=== PATIENT | female | born 1960 | race Caucasian/White ===

== ENCOUNTER → 2018-10-17 09:55 | Outpatient (CLI) | payer BC, OTHER, SELFPAY ==
--- NOTE | 2018-10-17 | DI.CT.S_ITS ---
PROCEDURE: CT CHEST WO CON INDICATIONS: Other nonspecific abnormal finding of lung field TECHNIQUE: Noncontrast 2.0-2.5 mm thick sections acquired from the pulmonary apices to the posterior costophrenic angles. 7 mm thick coronal and sagittal MIP reformats were then acquired. A low radiation dose technique was utilized. COMPARISON: Outside Facility, RG, CT THORAX W/O CONTRAST, 11/27/2015, 13:38. FINDINGS: Image quality: Diagnostic, given the low radiation dose technique. Lungs and pleura: Multiple sub-5 mm bilateral pulmonary nodules are grossly stable since 11/27/15. The previously described 7 mm solid nodule involving the superior segment of the left lower lobe is also stable since the only comparison examination dated 11/27/15. This is seen on image 110 series 3 Mediastinum: Heart size is normal. Coronary artery calcifications are present. No pericardial effusion. No mediastinal adenopathy by size criteria. Thoracic aorta and central pulmonary arteries are normal in size. Esophagus is normal in caliber. No hiatal hernia. Bones and chest wall: No suspicious bony lesions. No vertebral body compression fractures. No axillary or supraclavicular adenopathy by size criteria. Thyroid gland unremarkable. Abdomen: Visualized upper abdomen solid organs and bowel loops appear normal in the absence of contrast. IMPRESSION: Overall, no interval change in subcentimeter pulmonary nodules. A final definitive followup noncontrast chest CT could be performed in 2 years to provide 5 year surveillance of the sub-solid left lower lobe superior segment pulmonary nodule. Fleischner Society criteria for SOLID lung nodule followup. Nodule size (mm)Low-risk patientHigh-risk patient<6 (single or multiple)No routine followup.Optional CT at 12 months. 6-8 (single or multiple)CT at 6-12 months, then optional CT at 18-24 mo.CT at 6-12 months, then CT at 18-24 months. >8 (single)CT at 3 months, PET-CT, or biopsy. Same as for low-risk pts. >8 (multiple)CT at 3-6 months, then optional CT at 18-24 mo.CT at 3-6 months, then CT at 18-24 months. Fleischner Society criteria for SUB-SOLID lung nodule followup. Solitary pure ground-glass nodules<6 mm (ground glass or part solid)No followup needed. 6 mm or larger (ground glass)CT at 6-12 months to confirm persistence, then CT every 2 years until 5 years.6 mm or larger (part solid)CT at 3-6 months to confirm persistence, then annual CT until 5 years if unchanged and solid component remains <6 mm. Multiple sub-solid nodules<6 mmCT at 3-6 months, then CT consider at 2 & 4 years for high risk patients. [address] at 3-6 months. Subsequent management based on most suspicious lesions. Recommendations do not apply to lung cancer screening, patients with immunosuppression, or patients with known primary cancer. Dictated by: Jaquan Larkin M.D. on 10/22/2018 at 16:19 Approved by: Jaquan Larkin M.D. on 10/22/2018 at 16:25
== END ==
PROVIDERS: Visit Provider Internal Medicine
DX: R91.8 Other nonspecific abnormal finding of lung field (principal)
CPT/HCPCS: 71250

== ENCOUNTER 2020-06-12 10:48 | Emergency (ER) | payer BC, OTHER, SELFPAY ==
[2020-06-12 11:05] VITALS: BP 202/91; PULSE 71; RESP 14; TEMP 36.9; O2SAT 100; BMI 22.1
[2020-06-12 11:17] VITALS: PULSE 76; O2SAT 100
[2020-06-12 11:30] VITALS: PULSE 61; O2SAT 98
[2020-06-12 11:31] VITALS: BP 136/75; PULSE 66; O2SAT 98
--- NOTE | 2020-06-12 11:32 | ED.SKABFB ---
HPI - Skin/Abscess/Foreign Bdy <PANFILO Green - Last Filed: 06/12/20 15:43> General Chief complaint: Skin/Abscess/Foreign Body Stated complaint: trouble swallowing food Time Seen by Provider: 06/12/20 11:14 Source: patient Mode of arrival: Ambulatory Limitations: no limitations History of Present Illness HPI narrative: 59yo female wtih HTN, presents to the ED for difficulty swallowing for the past week. Patient states approximately week ago she choked on an almond butter sandwich and but the left side of her tongue. She noticed after that it was difficult to swallow food. She states it is getting progressively worse, she states it is difficult to swallow food when she is eating. She does not vomit or spit it out. Patient states she ate breakfast yesterday, did not eat anything today because she was scared it would get stuck. Patient states she has able to drink liquids. She was able to eat a smoothie and take a vitamin today. She called to make an appointment at her doctor's office, was told to come to the emergency department for imaging, patient requesting CT. ?. She denies any history of acid reflux, states she took an acid yesterday unsure of this helped. She denies any numbness, tingling, slurred speech, facial droop, headaches, vision changes, nausea, vomiting, diarrhea, chest pain, shortness of breath, or any other concerns. Related Data Previous Rx's Medication Instructions Recorded lisinopril 10 mg tablet 10 mg PO DAILY #90 tab 01/14/20 lisinopril 5 mg tablet 5 mg PO DAILY #90 tab 01/14/20 omeprazole 20 mg PO DAILY 14 Days #14 cap 06/12/20 Allergies Allergy/AdvReac Type Severity Reaction Status Date / Time sulfamethoxazole Allergy Severe hives from Verified 06/12/20 11:10 [From ] being in the sun trimethoprim [From ] Allergy Severe hives from Verified 06/12/20 11:10 being in the sun bacitracin Allergy Intermediate itchy skin Verified 06/12/20 11:10 Review of Systems <PANFILO Green - Last Filed: 06/12/20 15:43> Review of Systems Narrative: REVIEW OF SYSTEMS: GENERAL: Denies fever. HENT: No head trauma. Reports difficulty swelling, see HPI. CARDIOVASCULAR: No chest pain. RESPIRATORY: No shortness of breath or cough. GASTROINTESTINAL: No nausea or vomiting. GENITOURINARY: No flank pain. MUSCULOSKELETAL: No pain. INTEGUMENTARY: No rash. NEURO: No numbness or tingling. Patient History <PANFILO Green - Last Filed: 06/12/20 15:43> Medical History Abnormal Pap smear of cervix (~2018) Acne (~1974) Allergies (~1984) Chicken pox Colon polyps (~2015) Dyslipidemia Fibroids (~2014) Frequent UTI (~1982) Hemoglobin A1c above reference range Hypertension (~2012) Kidney stones (~2011) Ovarian cyst Ruptured tympanic membrane (~1993) Surgical History Anesthesia History of oophorectomy (~2014) History of oral surgery (~1983) Family History Father Cancer Hypertension Mother Hypertension Grandmother Melanoma Social History Smoking Status: Never smoker Smoking Status: Never smoker alcohol intake frequency: holidays/special occasions only Substance Use Type: does not use Exam <PANFILO Green - Last Filed: 06/12/20 15:43> Initial Vital Signs Initial Vital Signs: Vital Signs Temperature 98.4 F 06/12/20 11:05 Pulse Rate 71 06/12/20 11:05 Respiratory Rate 14 06/12/20 11:05 Blood Pressure 202/91 H 06/12/20 11:05 Pulse Oximetry 100 06/12/20 11:05 PHYSICAL EXAMINATION: GENERAL: Awake and alert HENT: Normocephalic, atraumatic. Oropharynx without erythema. EYES: PERRLA, EOMIs, conjunctiva pink, sclera white, no periorbital swelling. CHEST: Normal to inspection and without deformities. CARDIOVASCULAR: S1 and S2 sounds normal. Regular rate and rhythm, no murmurs, clicks, or bruits. No pedal edema. RESPIRATORY: Normal respiratory rate, trachea midline, airway patent. No stridor, nasal flaring or accessory muscle use. Lungs are clear in all clement without wheeze, rhonchi, or crackles. GASTROINTESTINAL: Bowel sounds normoactive. Abdomen is soft and non-tender. No organomegaly. MUSCULOSKELETAL: Normal gait and coordination. Equal tone and mass bilaterally. EXTREMITIES: CMS intact. Moves all extremities. SKIN: Warm, dry, soft, appropriate color for ethnicity. No lesions, rashes, or wounds. NEURO: Alert and Oriented X 3. Good coordination. No ataxia, or sensory deficits, or cognitive issues. PHYSICAL EXAMINATION: GENERAL: Well groomed, alert, and cooperative. Answers questions promptly and appropriately. Vital signs noted. HENT: Normocephalic. Ear canals patent. Oral mucosa is pink and moist. EYES: PERRLA, EOMIs, conjunctiva pink, sclera white, no periorbital swelling. NECK: Full ROM, no midline or spinal tenderness. CARDIOVASCULAR: S1 and S2 sounds normal. Regular rate and rhythm, no murmurs, clicks, or bruits. RESPIRATORY: Normal respiratory rate, trachea midline, airway patent. No stridor, nasal flaring or accessory muscle use. Lungs are clear in all clement without wheeze, rhonchi, or crackles. MUSCULOSKELETAL: Normal gait and coordination. Equal tone and mass bilaterally. Equal strength bilaterally to upper and lower extremities. No spinal tenderness. EXTREMITIES: CMS intact. Moves all extremities. SKIN: Warm, dry, soft, appropriate color for ethnicity. No lesions, rashes, or wounds to visualized areas. NEURO: Alert and Oriented X 3. GCS: 15. Good coordination. No ataxia, or sensory deficits, or cognitive issues. Cranial Nerves: II: Visual clement grossly intact. III & IV & : EOMIs V: Able to open and close jaw. VII: Facial movements symetrical. Able to close eyelids tightly. VIII: Hearing grossly intact, adequate balance. X: Uvula pronation intact. XI: Patient is able to shrug shoulders. XII: Patient is able to stick out tongue and move it side to side. PSYCH: Appropriate affect and mood. PSYCH: Appropriate affect and mood. <Tiana Blackburn, - Last Filed: 06/13/20 08:11> Initial Vital Signs Initial Vital Signs: Vital Signs Temperature 98.4 F 06/12/20 11:05 Pulse Rate 71 06/12/20 11:05 Respiratory Rate 14 06/12/20 11:05 Blood Pressure 202/91 H 06/12/20 11:05 Pulse Oximetry 100 06/12/20 11:05 Course <PANFILO Green - Last Filed: 06/12/20 15:43> Course Course Narrative: 1310: I spoke with Dr. Brown, discussed patient's symptoms, test, test results, plan of care. She agreed outpatient follow-up is appropriate. 1330: Patient updated on plan of care, encouraged to contact outpatient surgeon as soon as possible. All questions answered. Patient reports feeling better after GI cocktail. Orders Ordered: Discontinued Medications Al Hydrox/Mg Hydrox/Simethicone 20 ml/ Lidocaine HCl 15 ml 0 ml PO NOW ONE Stop: 06/12/20 11:31 Last Admin: 06/12/20 11:38 Dose: 35 ml Documented by: SCHUYLER Consultations Consultation #1: Patient staffed with Dr. Blackburn discussed test, test results, plan of care. Vital Signs Vital signs: Vital Signs - 8 hr 06/12/20 11:05 06/12/20 11:17 06/12/20 11:30 Temperature 98.4 F Pulse Rate 71 76 61 Respiratory Rate 14 Blood Pressure 202/91 H Pulse Oximetry 100 100 98 06/12/20 11:31 06/12/20 12:44 06/12/20 13:35 Temperature Pulse Rate 66 70 68 Respiratory Rate 14 14 Blood Pressure 136/75 136/75 136/75 Pulse Oximetry 98 100 100 <Tiana Blackburn DO - Last Filed: 06/13/20 08:11> Orders Ordered: Discontinued Medications Al Hydrox/Mg Hydrox/Simethicone 20 ml/ Lidocaine HCl 15 ml 0 ml PO NOW ONE Stop: 06/12/20 11:31 Last Admin: 06/12/20 11:38 Dose: 35 ml Documented by: SCHUYLER Vital Signs Vital signs: Vital Signs - 8 hr 06/12/20 11:05 06/12/20 11:17 06/12/20 11:30 Temperature 98.4 F Pulse Rate 71 76 61 Respiratory Rate 14 Blood Pressure 202/91 H Pulse Oximetry 100 100 98 06/12/20 11:31 06/12/20 12:44 06/12/20 13:35 Temperature Pulse Rate 66 70 68 Respiratory Rate 14 14 Blood Pressure 136/75 136/75 136/75 Pulse Oximetry 98 100 100 MDM - Skin/Abscess/Foreign Bdy <Cristina Ross CUSTOMER CARE COORDINATOR - Last Filed: 06/12/20 15:43> Medical Records Attestation: I reviewed the patient's medical records. Lab Data Attestation: I reviewed the patient's lab results. Result diagrams: 06/12/20 11:49 06/12/20 11:49 Labs: Lab Results 06/12/20 06/12/20 Range/Units 11:49 11:49 WBC 5.3 (4.5-11.0) X10^3/uL RBC 4.49 (4.0-5.2) X10^6/uL Hgb 13.2 (12.0-16.0) g/dL Hct 39.3 (36-46) % MCV 87.6 (80-100) fL MCH 29.5 (26-34) PG MCHC 33.7 (30-36) % RDW 13.4 (11.6-14.8) % Plt Count 195 (150-400) X10^3/uL Neut % (Auto) 54.8 (50-75) % Lymph % (Auto) 31.4 (25-40) % Th[place]morton % (Auto) 7.9 (3-14) % Eos % (Auto) 5.0 H (2-4) % Baso % (Auto) 0.9 (0-2) % Neut # (Auto) 2900 (2528-4994) /uL Lymph # (Auto) 1700 (8789-2730) /uL Throckmorton # (Auto) 400 (0-900) /uL Eos # (Auto) 300 (0-450) /uL Baso # (Auto) 0 (0-100) /uL Sodium 137 (137-145) mmol/L Potassium 4.3 (3.4-5.1) mmol/L Chloride 104 (98-107) mmol/L Carbon Dioxide 28 (22-32) mmol/L BUN 16 (7-17) mg/dL Creatinine 0.57 (0.52-1.04) mg/dL Estimated GFR > 60.0 (>60) mL/min BUN/Creatinine Ratio 28.1 H (6-22) Glucose 95 (80-110) mg/dL Calcium 10.1 (8.4-10.2) mg/dL Total Bilirubin 0.5 (0.2-1.3) mg/dL AST 33 (14-36) IU/L ALT 29 (<35) IU/L Alkaline Phosphatase 79 (38-126) U/L Total Protein 7.1 (6.3-8.2) g/dL Albumin 4.2 (3.5-5.0) g/dL Globulin 2.9 (1.7-4.1) g/dL Albumin/Globulin Ratio 1.4 (1.0-2.8) Imaging Data Soft Tissue Neck: Radiologist's Impression: [address] [id number] ReportSigned Patient: Alicia Chaparro AMR#: [id number]: 9Acct:[id number]/Sex: 59 / FDate of Service: 06/12/20Loc: EDAccession Number: [id number] Procedure: XR soft tissue neck Ordering Provider: Cristina Ross PROCEDURE: XR SOFT TISSUE NECK INDICATIONS: difficulty swallowing TECHNIQUE: 2 views of the neck were acquired. COMPARISON: None. FINDINGS: Airway: The airway appears patent. Soft tissues: Prevertebral soft tissues are normal in thickness. The epiglottis and aryepiglottic folds appear normal. No soft tissue gas. Bones: No suspicious bony lesions. Mild degenerative changes at the C5-6 level of the cervical spine. Visualized cervical spine is normally aligned. IMPRESSION: No radiographic abnormalities of the neck soft tissues. Barium swallow is recommended for further workup. Dictated by: Molly Craven M.D. on 06/12/2020 at 11:33 Approved by: Molly Craven M.D. on 06/12/2020 at 11:34 [facility] Narrative Medical decision making narrative: 59-year-old female presents emergency department for difficulty swallowing. She states this has been worsening over the past week after eating a almond butter sandwich. Patient able to swallow vitamin in liquids. She has difficulty swallowing food but does not need to vomit or spit it up. Patient was able to drink GI cocktail, reported some relief. I spoke with general started, Dr. Brown who suggested outpatient follow-up as well. I discussed findings with patient. Laboratory work within normal limits. No signs of infection such as swelling, erythema, or white count. Patient is hemodynamically stable, no airway compromise. Return precautions given for new or worsening symptoms. She agreed to plan of care verbalized understanding. <Tiana Blackburn, DO - Last Filed: 06/13/20 08:11> Lab Data Labs: Lab Results 06/12/20 06/12/20 Range/Units 11:49 11:49 WBC 5.3 (4.5-11.0) X10^3/uL RBC 4.49 (4.0-5.2) X10^6/uL Hgb 13.2 (12.0-16.0) g/dL Hct 39.3 (36-46) % MCV 87.6 (80-100) fL MCH 29.5 (26-34) PG MCHC 33.7 (30-36) % RDW 13.4 (11.6-14.8) % Plt Count 195 (150-400) X10^3/uL Neut % (Auto) 54.8 (50-75) % Lymph % (Auto) 31.4 (25-40) % [place]morton % (Auto) 7.9 (3-14) % Eos % (Auto) 5.0 H (2-4) % Baso % (Auto) 0.9 (0-2) % Neut # (Auto) 2900 (9904-7797) /uL Lymph # (Auto) 1700 (5521-3109) /uL Th[place]morton # (Auto) 400 (0-900) /uL Eos # (Auto) 300 (0-450) /uL Baso # (Auto) 0 (0-100) /uL Sodium 137 (137-145) mmol/L Potassium 4.3 (3.4-5.1) mmol/L Chloride 104 (98-107) mmol/L Carbon Dioxide 28 (22-32) mmol/L BUN 16 (7-17) mg/dL Creatinine 0.57 (0.52-1.04) mg/dL Estimated GFR > 60.0 (>60) mL/min BUN/Creatinine Ratio 28.1 H (6-22) Glucose 95 (80-110) mg/dL Calcium 10.1 (8.4-10.2) mg/dL Total Bilirubin 0.5 (0.2-1.3) mg/dL AST 33 (14-36) IU/L ALT 29 (<35) IU/L Alkaline Phosphatase 79 (38-126) U/L Total Protein 7.1 (6.3-8.2) g/dL Albumin 4.2 (3.5-5.0) g/dL Globulin 2.9 (1.7-4.1) g/dL Albumin/Globulin Ratio 1.4 (1.0-2.8) Discharge Plan Departure Patient Disposition: Home Clinical Impression: Esophagitis Difficulty in swallowing Qualifiers: Dysphagia type: unspecified Qualified Code(s): R13.10 - Dysphagia, unspecified Activity Restrictions/Additional Instructions: Thank you for entrusting me with your care today. As discussed, your x-ray does not show any foreign objects in your esophagus, no swelling, or concerning anatomy changes. Your laboratory work is within normal limits. I spoke with the surgeon, Dr. Brown today, she recommends making an appointment was soon as possible to discuss a scope. Please call the number listed below. I suggest a bland diet with soft foods like mashed potatoes and smoothies. Avoid sharp, tough, and spicy food. I also suggest taking omeprazole 20mg every morning for the next 2 weeks to help decrease esophageal irritation and possible reflux. This was sent to [facility]. Return emergency department for any new or worsening symptoms especially inability to swallow liquids, uncontrollable vomiting, shortness of breath, or any other concerns. Prescriptions: New omeprazole 20 mg capsule,delayed release(DR/EC) 20 mg PO DAILY 14 Days Qty: 14 RF: 0 No Action lisinopril 10 mg tablet 10 mg PO DAILY Qty: 90 RF: 1 lisinopril 5 mg tablet 5 mg PO DAILY Qty: 90 RF: 1 Referrals: Brady Celaya MD [Primary Care Provider] - <Tiana Blackburn DO - Last Filed: 06/13/20 08:11> Cosign ED Attending Cosignature Attestation: I was immediately available in the department for consultation. Documentation has been reviewed. I agree with assessment and plan.
[2020-06-12] MEDS: MAG HYDROX/ALUMINUM/SIMETH SUS 20 ML, LIDOCAINE VISCOUS 2% 15 ML PO (11:38)
--- NOTE | 2020-06-12 11:48 | DI.RAD.S_ITS ---
PROCEDURE: XR SOFT TISSUE NECK INDICATIONS: difficulty swallowing TECHNIQUE: 2 views of the neck were acquired. COMPARISON: None. FINDINGS: Airway: The airway appears patent. Soft tissues: Prevertebral soft tissues are normal in thickness. The epiglottis and aryepiglottic folds appear normal. No soft tissue gas. Bones: No suspicious bony lesions. Mild degenerative changes at the C5-6 level of the cervical spine. Visualized cervical spine is normally aligned. IMPRESSION: No radiographic abnormalities of the neck soft tissues. Barium swallow is recommended for further workup. Dictated by: Molly Craven M.D. on 06/12/2020 at 11:33 Approved by: Molly Craven M.D. on 06/12/2020 at 11:34
--- NOTE | 2020-06-12 11:54 | PC.NURSE ---
patient has had trouble swallowing for the last week. It comes and goes and sometimes she is able to swallow and other times she states that she has a hard time feeling like shes getting food down. She has a history of thryroid disorder in the past and was treated for it and she stated that it was resolved.
[2020-06-12 11:58] LABS: Add Manual Diff / Slide Review NO; Basophils Absolute Auto 0 /uL (0-100); Basophils Percent Auto 0.9 % (0-2); Eosinophils Absolute Auto 300 /uL (0-450); Hematocrit 39.3 % (36-46); Hemoglobin 13.2 g/dL (12.0-16.0); Lymphocytes Absolute Auto 1700 /uL (1100-4500); Lymphocytes Percent Auto 31.4 % (25-40); Mean Corpuscular HGB Conc 33.7 % (30-36); Mean Corpuscular Hemoglobin 29.5 PG (26-34); Mean Corpuscular Volume 87.6 fL (80-100); Monocytes Absolute Auto 400 /uL (0-900); Monocytes Percent Auto 7.9 % (3-14); Neutrophils Absolute Auto 2900 /uL (1500-7000); Neutrophils Percent Auto 54.8 % (50-75); Platelet Count 195 X10^3/uL (150-400); Red Blood Cell Count 4.49 X10^6/uL (4.0-5.2); Red Cell Distribution Width 13.4 % (11.6-14.8); White Blood Cell Count 5.3 X10^3/uL (4.5-11.0)
[2020-06-12 12:12] LABS: Alanine Aminotransferase 29 IU/L (<35); Albumin 4.2 g/dL (3.5-5.0); Albumin Globulin Ratio 1.4 (1.0-2.8); Alkaline Phosphatase 79 U/L (38-126); Aspartate Aminotransferase 33 IU/L (14-36); BUN Creatinine Ratio 28.1 (6-22); Bilirubin Total 0.5 mg/dL (0.2-1.3); Blood Urea Nitrogen 16 mg/dL (7-17); Calcium 10.1 mg/dL (8.4-10.2); Carbon Dioxide 28 mmol/L (22-32); Chloride 104 mmol/L (98-107); Estimated Glomerular Filt Rate > 60.0 mL/min (>60); Globulin 2.9 g/dL (1.7-4.1); Glucose 95 mg/dL (80-110); HEMOLYSIS < 15 (0-50); Potassium 4.3 mmol/L (3.4-5.1); Sodium 137 mmol/L (137-145); Total Protein 7.1 g/dL (6.3-8.2)
[2020-06-12 12:44] VITALS: BP 136/75; PULSE 70; RESP 14; O2SAT 100
[2020-06-12 13:35] VITALS: BP 136/75; PULSE 68; RESP 14; O2SAT 100
== END 2020-06-12 13:37 | disposition home or self-care (01) ==
PROVIDERS: Emergency Provider Nurse Practitioner; PCP Family Medicine
DX: R13.10 Dysphagia, unspecified (principal); K20.90 Esophagitis, unspecified without bleeding; I10 Essential (primary) hypertension; E78.5 Hyperlipidemia, unspecified
CPT/HCPCS: 70360; 80053; 85025; 99281; 99283

== ENCOUNTER → 2020-06-22 10:04 | Outpatient (CLI) | payer BC, OTHER, SELFPAY ==
--- NOTE | 2020-06-22 10:05 | DI.RAD.S_ITS ---
PROCEDURE: FL BARIUM SWALLOW W AIR COMPARISON: None. INDICATIONS: Dysphagia FINDINGS: There is mild esophageal dysmotility and mildly delayed esophageal clearance. No stricture or intraluminal filling defect is seen. Grossly unremarkable appearance of the mucosa. No hiatal hernia is seen. IMPRESSION: Mild esophageal dysmotility. Dictated by: Jaquan Larkin M.D. on 06/22/2020 at 11:05 Approved by: Jaquan Larkin M.D. on 06/22/2020 at 11:06
== END ==
PROVIDERS: PCP Family Medicine; Referring Provider Surgery; Visit Provider Surgery
DX: R13.10 Dysphagia, unspecified (principal); K22.4 Dyskinesia of esophagus
CPT/HCPCS: 74221

== ENCOUNTER → 2020-11-04 07:28 | Outpatient (CLI) | payer BC, OTHER, SELFPAY ==
[2020-11-04 08:38] LABS: Add Manual Diff / Slide Review NO; Basophils Absolute Auto 0 /uL (0-100); Basophils Percent Auto 0.5 % (0-2); Eosinophils Absolute Auto 100 /uL (0-450); Eosinophils Percent Auto 2.7 % (2-4); Hematocrit 40.1 % (36-46); Hemoglobin 13.2 g/dL (12.0-16.0); Lymphocytes Absolute Auto 1400 /uL (1100-4500); Lymphocytes Percent Auto 30.3 % (25-40); Mean Corpuscular HGB Conc 32.9 % (30-36); Mean Corpuscular Hemoglobin 28.9 PG (26-34); Monocytes Absolute Auto 400 /uL (0-900); Monocytes Percent Auto 9.2 % (3-14); Neutrophils Absolute Auto 2600 /uL (1500-7000); Neutrophils Percent Auto 57.3 % (50-75); Platelet Count 217 X10^3/uL (150-400); Red Blood Cell Count 4.55 X10^6/uL (4.0-5.2); Red Cell Distribution Width 13.7 % (11.6-14.8); White Blood Cell Count 4.6 X10^3/uL (4.5-11.0)
[2020-11-04 08:47] LABS: Hemoglobin A1C% w Est Avg Glu 5.4 % (4.0-6.0)
[2020-11-04 09:08] LABS: Cholesterol 222 mg/dL (140-199); HDL Cholesterol 59 mg/dL (40-60); LDL Cholesterol Calculated 147 mg/dL (<100); Triglycerides 80 mg/dL (35-150)
[2020-11-04 09:09] LABS: Alanine Aminotransferase 19 IU/L (<35); Albumin 4.1 g/dL (3.5-5.0); Albumin Globulin Ratio 1.4 (1.0-2.8); Alkaline Phosphatase 70 U/L (38-126); Aspartate Aminotransferase 26 IU/L (14-36); BUN Creatinine Ratio 38.6 (6-22); Bilirubin Total 0.6 mg/dL (0.2-1.3); Blood Urea Nitrogen 22 mg/dL (7-17); Calcium 9.8 mg/dL (8.4-10.2); Carbon Dioxide 26 mmol/L (22-32); Chloride 107 mmol/L (98-107); Estimated Glomerular Filt Rate > 60.0 mL/min (>60); Globulin 2.9 g/dL (1.7-4.1); Glucose 92 mg/dL (80-110); HEMOLYSIS < 15 (0-50); Potassium 4.2 mmol/L (3.4-5.1); Sodium 138 mmol/L (137-145)
[2020-11-04 09:37] LABS: TSH w/ Reflex to FT4 3.11 uIU/mL (0.47-4.68)
== END ==
PROVIDERS: Registered Nurse Diabetes Educator; PCP Family Medicine; Referring Provider Family Medicine; Visit Provider Family Medicine
DX: E78.5 Hyperlipidemia, unspecified (principal); I10 Essential (primary) hypertension; R73.09 Other abnormal glucose
CPT/HCPCS: 36415; 80053; 80061; 83036; 84443; 85025

== ENCOUNTER → 2022-02-07 10:07 | Outpatient (CLI) | payer BC, OTHER, SELFPAY | PROVIDERS: PCP Family Medicine; Visit Provider Nurse Practitioner Family | DX: J02.9 Acute pharyngitis, unspecified (principal) | CPT/HCPCS: 87070 ==

== ENCOUNTER → 2022-04-04 07:19 | Outpatient (CLI) | payer BC, OTHER, SELFPAY ==
[2022-04-04 07:57] LABS: Add Manual Diff / Slide Review NO; Basophils Absolute Auto 0 /uL (0-100); Basophils Percent Auto 0.4 % (0-2); Eosinophils Absolute Auto 0 /uL (0-450); Eosinophils Percent Auto 1.4 % (2-4); Hematocrit 36.8 % (36-46); Hemoglobin 12.6 g/dL (12.0-16.0); Lymphocytes Absolute Auto 1300 /uL (1100-4500); Lymphocytes Percent Auto 55.1 % (25-40); Mean Corpuscular HGB Conc 34.1 % (30-36); Mean Corpuscular Hemoglobin 29.2 PG (26-34); Mean Corpuscular Volume 85.6 fL (80-100); Monocytes Absolute Auto 300 /uL (0-900); Monocytes Percent Auto 11.3 % (3-14); Neutrophils Absolute Auto 800 /uL (1500-7000); Neutrophils Percent Auto 31.8 % (50-75); Platelet Count 180 X10^3/uL (150-400); Red Blood Cell Count 4.31 X10^6/uL (4.0-5.2); Red Cell Distribution Width 13.7 % (11.6-14.8); White Blood Cell Count 2.4 X10^3/uL (4.5-11.0)
[2022-04-04 08:32] LABS: Alanine Aminotransferase 27 IU/L (<35); Albumin Globulin Ratio 1.3 (1.0-2.8); Alkaline Phosphatase 66 U/L (38-126); Aspartate Aminotransferase 27 IU/L (14-36); Bilirubin Total 0.4 mg/dL (0.2-1.3); Blood Urea Nitrogen 16 mg/dL (7-17); Calcium 9.2 mg/dL (8.4-10.2); Carbon Dioxide 29 mmol/L (22-32); Chloride 102 mmol/L (98-107); Cholesterol 207 mg/dL (140-199); Estimated Glomerular Filt Rate > 60 mL/min (>60); Globulin 3.1 g/dL (1.7-4.1); Glucose 97 mg/dL (80-110); HDL Cholesterol 36 mg/dL (40-60); HEMOLYSIS < 15 (0-50); LDL Cholesterol Calculated 143 mg/dL (<100); Potassium 3.7 mmol/L (3.4-5.1); Sodium 137 mmol/L (137-145); Total Protein 7.1 g/dL (6.3-8.2); Triglycerides 141 mg/dL (35-150)
== END ==
PROVIDERS: PCP Family Medicine; Referring Provider Family Medicine; Visit Provider Family Medicine
DX: E78.5 Hyperlipidemia, unspecified (principal); I10 Essential (primary) hypertension; R73.09 Other abnormal glucose
CPT/HCPCS: 36415; 80053; 80061; 84443; 85025

== ENCOUNTER → 2022-04-20 09:34 | Outpatient (CLI) | payer BC, OTHER, SELFPAY ==
[2022-04-20 10:11] LABS: Appearance Urine UA CLEAR; Bilirubin Urine UA NEGATIVE (NEGATIVE); Color Urine UA YELLOW; Glucose Urine UA NEGATIVE (Negative); Ketones Urine UA NEGATIVE (NEGATIVE); Leukocyte Esterase Urine UA 2+ (NEGATIVE); Nitrite Urine UA NEGATIVE (Negative); Occult Blood Urine UA NEGATIVE (Negative); Protein Urine UA NEGATIVE (Negative); Urobilinogen Urine UA 0.2 E.U./dL (0.2)
[2022-04-20 10:20] LABS: Bacteria Urine None Seen; Culture Indicated Urine Specimen Cultured; RBC Urine None Seen (0-5/HPF); Squamous Epithelial Cell Urine 0-1 /HPF (0-5/HPF); WBC Urine 1-5/HPF (0-5/HPF)
== END ==
PROVIDERS: PCP Family Medicine; Referring Provider Family Medicine; Visit Provider Family Medicine
DX: R31.9 Hematuria, unspecified (principal)
CPT/HCPCS: 81001; 87086